=== PATIENT | female | born 1980 | race Caucasian/White ===

== ENCOUNTER 2017-02-19 10:23 | Emergency (ER) | payer SELFPAY ==
[2017-02-19 10:29] VITALS: BP 133/93; BMI 25.8
--- NOTE | 2017-02-19 10:56 | DR.GENAD ---
HPI - PCP Primary Care Physician: ron - HPI Comment HPI Comment: PATIENT HAVE HAD ANTIBIOTIC FOR SAME TIMES 2. NO FEVER. COUGH NON PRODUCTIVE. - Complaint/Symptoms Chief Complaint Doctors Comments: COUGH FOR SEVERAL WEEKS. NOW HAVING PAIN RIGHT LOWER CHEST. Chief Complaint:: patient stated she has been battling a chest cold for 3 months. she said she has been on 2 different antiobiotics and it is worse. her right side of chest hurts to breath deep - Nurses notes reviewed Nurses Notes Review: Yes - Source History Provided: Patient - Mode of Arrival Mode of Arrival: Ambulatory - Timing Onset of Chief Complaint: 11/19/16 Came on: Suddenly - Duration Duration: Constant Duration: Days - Severity Severity: Moderate PMH - PMH Past Medical History: Yes Past Medical History: Anxiety, Headaches Past Surgical History: Yes Surgical History: [employer] Surgery, Hysterectomy, Ortho Surgery - Family History History of Family Medical Conditions: Yes Family Medical History: Diabetes Mellitus, Cancer - Social History Does patient currently use any type of tobacco product: Yes Have you used tobacco products in the last 12 months: Yes Type of Tobacco Use: Cigarettes How many years tobacco product used: 1 Does any household member use tobacco: Yes Alcohol Use: None Do you use any recreational Drugs:: No Lives With: Family Lives Where: Home - infectious screening In the last 2 months have you had wt loss of >10#?: NO Have you had fever, night sweats or hemotysis?: No Have you traveled outside the country in the last 6 months?: No Isolation: Standard ROS - Review of Systems Constitutional: No Symptoms Reported Eyes: No Symptoms Reported ENTM: No Symptoms Reported Respiratoy: Non-Productive Cough, Short of Breath (WITH DEEP BREATHING.) Cardiovascular: Chest Pain Gastrointestinal/Abdominal: No Symptoms Reported. negative: Abdominal Pain, Nausea, Vomiting Genitourinary: No Symptoms Reported. negative: Dysuria, Frequency, Hematuria Neurological: No Symptoms Reported. negative: Headache, Weakness, Dizziness Musculoskeletal: No Symptoms Reported Integumentary: No Symptoms Reported Hematologic/Lymphatic: No Symptoms Reported Endocrine: No Symptoms Reported All Other Systems: Reviewed and Negative PE - Vital Signs Vitals: Temperature 98.1 F Pulse Rate 71 Respiratory Rate 16 Blood Pressure [Right Arm] 96/57 Blood Pressure 133/93 O2 Sat by Pulse Oximetry 99 - General Limitations: No Limitations General Appearance: Alert - Head Head Exam: Normal Inspection - Eyes Eye exam: Normal Appearance - ENT ENT Exam: Normal External Ear Exam External Ear Exam: Normal External Inspection TM/Canal Exam: Bilateral Normal Nose Exam: Normal Nose Exam Mouth Exam: Normal Inspection Throat Exam: Normal Inspection - Neck Neck Exam: Normal Inspection - Chest Chest Inspection: Symmetric Chest Wall Rise - Respiratory Respiratory Exam: Chest Wall Tenderness (RT LOWER CHEST.) Respiratory Exam: Bilateral Clear to Auscultation - Cardiovascular Cardiovascular Exam: Regular Rate, Normal Rhythm, Normal Heart Sounds - Abdominal Exam Abdominal Exam: Normal Bowel Sounds, Soft. negative: Tenderness - Extremities Extremities Exam: Normal Inspection - Back Back Exam: Normal Inspection - Neurologic Neurological Exam: Alert, Oriented X3 - Psychiatric Psychiatric Exam: Normal Affect, Normal Mood - Skin Skin Exam: Normal Color MDM - Differential Diagnosis Differential Diagnosis: PLUERISY, BRONCHITIS Course - Treatment Treatment: SEE ODERS - Education/Counseling Education/Counseling: Patient, Education Educated On: Diagnosis, Needs for Follow Up ROR - Labs Reviewed Laboratory Results Reviewed?: Yes Result Diagrams: 02/19/17 11:10 02/19/17 11:10 Laboratory: WBC 6.6 X10^3/uL (3.6-10.0) 02/19/17 11:10 RBC 4.87 X10^6/uL (3.5-5.4) 02/19/17 11:10 Hgb 14.7 g/dL (12.0-16.0) 02/19/17 11:10 Hct 41.3 % (36.0-47.0) 02/19/17 11:10 MCV 84.8 fL (80.0-100.0) 02/19/17 11:10 MCH 30.2 pg (27.0-34.0) 02/19/17 11:10 MCHC 35.6 g/dL (33.0-35.0) H 02/19/17 11:10 RDW 13.9 % (11.6-16.5) 02/19/17 11:10 Plt Count 190 X10^3/uL (150.0-450.0) 02/19/17 11:10 MPV 9.4 fL (7.4-11.0) 02/19/17 11:10 Neut % 61.4 % (42.0-75.0) 02/19/17 11:10 Lymph % 29.6 % (21.0-51.0) 02/19/17 11:10 Gonzales % 5.5 % (0.0-13.0) 02/19/17 11:10 Eos % 2.4 % (0.9-2.9) 02/19/17 11:10 Baso % 1.1 % (0.2-1.0) H 02/19/17 11:10 Neut # 4.0 x10^3/uL (2.2-4.8) 02/19/17 11:10 Lymph # 1.9 X10^3/uL (1.3-2.9) 02/19/17 11:10 Gonzales # 0.4 x10^3/uL (0.3-0.8) 02/19/17 11:10 Eos # 0.2 x10^3/uL (0.0-0.2) 02/19/17 11:10 Baso # 0.1 X10^3/uL (0.0-0.1) 02/19/17 11:10 Absolute Nucleated RBC 0.0 /100WBC 02/19/17 11:10 D-Dimer 298 ng/mL (0-400) 02/19/17 11:10 Sodium 138 mmol/L (136-145) 02/19/17 11:10 Corrected Sodium TNP 02/19/17 11:10 Potassium 4.5 mmol/L (3.5-5.1) 02/19/17 11:10 Chloride 105 mmol/L (98-107) 02/19/17 11:10 Carbon Dioxide 29.6 mmol/L (21-32) 02/19/17 11:10 BUN 13 mg/dL (7-18) 02/19/17 11:10 Creatinine 0.76 mg/dL (0.55-1.02) 02/19/17 11:10 Est GFR (MDRD) Af Amer > 60 (>60) 02/19/17 11:10 Est GFR (MDRD) Non-Af > 60 (>60) 02/19/17 11:10 Glucose 96 mg/dL (65-99) 02/19/17 11:10 Calcium 9.2 mg/dL (8.5-10.1) 02/19/17 11:10 Corrected Calcium TNP 02/19/17 11:10 Total Bilirubin 0.30 mg/dL (0.2-1.0) 02/19/17 11:10 AST 16 Units/L (15-37) 02/19/17 11:10 ALT 13 Units/L (12-78) 02/19/17 11:10 Alkaline Phosphatase 70 Units/L (46-116) 02/19/17 11:10 Total Protein 7.5 g/dL (6.4-8.2) 02/19/17 11:10 Albumin 3.9 g/dL (3.4-5.0) 02/19/17 11:10 Globulin 3.6 g/dL (2.5-4.5) 02/19/17 11:10 Albumin/Globulin Ratio 1.1 Ratio (1.1-2.1) 02/19/17 11:10 - XRAY XRAY Findings: REPORT DISCUSS WITH PATIENT. - Diagnosis Discharge Problem: Pleurisy, Bronchitis - Discharge Plan Condition: Stable Prescriptions: Benzonatate [TESSALON PERLES *] 200 mg PO TID PRN #30 cap PRN Reason: Cough Ibuprofen [MOTRIN TAB 600 MG *] 600 mg PO TID PRN #20 tab PRN Reason: Pain/Inflammation - Follow ups/Referrals Follow ups/Referrals: [facility],None [Primary Care Provider] - 3 days LUIS BECKWITH [STAFF PHYSICIAN] - 3 days - Instructions Instructions: Acute Bronchitis, [id number], Pleurisy, [id number] Additional Instructions: RETURN TO ED IF WORSE.
[2017-02-19 11:20] LABS: BASOPHILS # (AUTO) 0.1 X10^3/uL (0.0-0.1); BASOPHILS % (AUTO) 1.1 % (0.2-1.0); EOSINOPHILS # (AUTO) 0.2 x10^3/uL (0.0-0.2); EOSINOPHILS % (AUTO) 2.4 % (0.9-2.9); HEMATOCRIT 41.3 % (36.0-47.0); HEMOGLOBIN 14.7 g/dL (12.0-16.0); LYMPHOCYTES # (AUTO) 1.9 X10^3/uL (1.3-2.9); LYMPHOCYTES % (AUTO) 29.6 % (21.0-51.0); MEAN CORPUSCULAR HEMOGLOBIN 30.2 pg (27.0-34.0); MEAN CORPUSCULAR HGB CONC 35.6 g/dL (33.0-35.0); MEAN CORPUSCULAR VOLUME 84.8 fL (80.0-100.0); MEAN PLATELET VOLUME 9.4 fL (7.4-11.0); MONOCYTES # (AUTO) 0.4 x10^3/uL (0.3-0.8); MONOCYTES % (AUTO) 5.5 % (0.0-13.0); NEUTROPHILS % (AUTO) 61.4 % (42.0-75.0); PLATELET COUNT 190 X10^3/uL (150.0-450.0); RED BLOOD COUNT 4.87 X10^6/uL (3.5-5.4); RED CELL DISTRIBUTION WIDTH 13.9 % (11.6-16.5); WHITE BLOOD COUNT 6.6 X10^3/uL (3.6-10.0)
[2017-02-19 11:28] LABS: ALANINE AMINOTRANSFERASE 13 Units/L (12-78); ALBUMIN 3.9 g/dL (3.4-5.0); ALKALINE PHOSPHATASE 70 Units/L (46-116); ASPARTATE AMINO TRANSFERASE 16 Units/L (15-37); BLOOD UREA NITROGEN 13 mg/dL (7-18); CALCIUM 9.2 mg/dL (8.5-10.1); CARBON DIOXIDE 29.6 mmol/L (21-32); CHLORIDE 105 mmol/L (98-107); CREATININE 0.76 mg/dL (0.55-1.02); SODIUM 138 mmol/L (136-145); TOTAL PROTEIN 7.5 g/dL (6.4-8.2); eGFR BLACK RACES > 60 (>60); eGFR NON BLACK RACES > 60 (>60)
--- NOTE | 2017-02-19 11:42 | RAD ---
HISTORY: Chest pain Study: AP portable chest Comparison: April 09, 2014 Findings: The heart is within normal limits in size. The milla are normal. The lungs are well inflated and free of acute infiltrates. No pleural effusions are identified. The thoracic aorta appears normal. The bon y thorax is unremarkable. IMPRESSION: No significant abnormality identified Reported By:
[2017-02-19 11:43] LABS: D DIMER 298 ng/mL (0-400)
== END 2017-02-19 12:17 | disposition home or self-care (01) ==
LOC: ER 10:32
DX: J40 Bronchitis, not specified as acute or chronic (principal); R09.1 Pleurisy; Z72.0 Tobacco use
CPT/HCPCS: 36415; 71010; 80053; 85025; 85378; 99282; 99283